=== PATIENT | female | born 1950 | race Caucasian/White ===

== ENCOUNTER → 2016-08-23 | Outpatient (CLI) | payer OTHER ==
[2016-08-23 15:33] LABS: ALT/SGPT 24 U/L (12-78); AST/SGOT 12 U/L (15-37); BLOOD UREA NITROGEN 15 mg/dl (7-18); BUN/CREATININE RATIO 17.3 (10-20); CALCIUM 9.6 mg/dl (8.5-10.1); CARBON DIOXIDE 28 mmol/L (21-32); CHLORIDE 103 mmol/L (98-107); CREATININE 0.88 mg/dl (0.60-1.20); GLUCOSE 125 mg/dl (70-99); POTASSIUM 3.5 mmol/L (3.5-5.1); SODIUM 137 mmol/L (136-145)
[2016-08-23 15:36] LABS: ALB/GLOB RATIO 0.9 (0.9-2); ALKALINE PHOSPHATASE 91 U/L (45-117); CHOLESTEROL 229 mg/dl (0-200); CHOLESTEROL/HDL RATIO 5.1; HDL CHOLESTEROL 45 mg/dl; TRIGLYCERIDES 332 mg/dl (0-150); VERY LOW DENSITY LIPOPROT CALC 66 mg/dl
[2016-08-24 06:29] LABS: ESTIMATED AVERAGE GLUCOSE 134 mg/dl; HA1C FLAG Normal (Normal)
== END | disposition home or self-care (01) ==
LOC: C.LABSPEC 13:00
PROVIDERS: ATTEND Internal Medicine
DX: I10 Essential (primary) hypertension (principal); E78.5 Hyperlipidemia, unspecified; R73.9 Hyperglycemia, unspecified; Z11.59 Encounter for screening for other viral diseases

== ENCOUNTER → 2017-02-23 | Outpatient (CLI) | payer OTHER ==
[2017-02-23 15:37] LABS: BASO % 0.1 %; BASO ABS # 0.01 K/uL (0-0.2); COMPLETE YES; EOS % 2.4 %; HEMATOCRIT 42.4 % (37-47); IG% 0.2 %; LYMPH % 24.6 %; MEAN CELL VOLUME 88.5 fL (80-100); MEAN CORPUSCULAR HEMOGLOBIN 30.1 pg (25-34); MEAN PLATELET VOLUME 11.1 fL (7.4-10.4); NEUT % 67.7 %; PLATELET COUNT 261 K/uL (130-400); RED BLOOD COUNT 4.79 M/uL (4.2-5.4); WHITE BLOOD COUNT 8.93 K/uL (4.8-10.8)
[2017-02-23 15:53] LABS: ALB/GLOB RATIO 0.9 (0.9-2); ALKALINE PHOSPHATASE 91 U/L (45-117); ALT/SGPT 19 U/L (12-78); AST/SGOT 14 U/L (15-37); BLOOD UREA NITROGEN 17 mg/dl (7-18); BUN/CREATININE RATIO 19.8 (10-20); CALCIUM 9.1 mg/dl (8.5-10.1); CARBON DIOXIDE 24 mmol/L (21-32); CHLORIDE 103 mmol/L (98-107); CHOLESTEROL 236 mg/dl (0-200); CREATININE 0.83 mg/dl (0.60-1.20); GLUCOSE 121 mg/dl (70-99); POTASSIUM 3.6 mmol/L (3.5-5.1); SODIUM 138 mmol/L (136-145)
[2017-02-23 16:04] LABS: CHOLESTEROL/HDL RATIO 5.6; HDL CHOLESTEROL 42 mg/dl; TRIGLYCERIDES 307 mg/dl (0-150); VERY LOW DENSITY LIPOPROT CALC 61 mg/dl
[2017-02-24 06:21] LABS: ESTIMATED AVERAGE GLUCOSE 131 mg/dl; HA1C FLAG Normal (Normal)
== END | disposition home or self-care (01) ==
LOC: C.LABSPEC 14:48
PROVIDERS: ATTEND Internal Medicine
DX: I10 Essential (primary) hypertension (principal); E78.5 Hyperlipidemia, unspecified; R73.9 Hyperglycemia, unspecified; E55.9 Vitamin D deficiency, unspecified

== ENCOUNTER → 2017-05-24 | Outpatient (CLI) | payer OTHER ==
--- NOTE | 2017-05-24 15:38 | MAMMOGRAPHY REPORT ---
BILATERAL DIGITAL SCREENING MAMMOGRAM TOMOSYNTHESIS WITH CAD: 05/24/2017 CLINICAL HISTORY: Routine screening. Patient has no complaints. TECHNIQUE: Breast tomosynthesis in addition to standard 2D mammography was performed. Current study was also evaluated with a Computer Aided Detection (CAD) system. COMPARISON: Comparison is made to exams dated: 03/03/2016 mammogram, 11/17/2014 mammogram, 09/12/2012 m ammogram, 08/24/2010 mammogram - [facility], 12/22/2008, and 08/28/2007. BREAST COMPOSITION: The tissue of both breasts is heterogeneously dense, which may obscure small mas ses. FINDINGS: There are grouped calcifications within the right superior breast at approximately 11:30 t o 12:00, for which spot magnification views are recommended for further evaluation. Additionally, th ere is questionable architectural distortion within the right superior breast, which may represent no rmal fibroglandular tissue although spot compression tomosynthesis views and possible breast ultrasou nd are recommended. The technologist also noted right clear nipple discharge during the exam. The remainder of both breasts are stable compared to prior exams, without suspicious masses, calcific ations, or areas of architectural distortion noted. Bilateral nodularity is stable to prior exams. IMPRESSION: ACR BI-RADS CATEGORY 0: INCOMPLETE EVALUATION: NEED ADDITIONAL IMAGING EVALUATION 1. Right breast calcifications and questionable right breast architectural distortion, for which yoselin tional imaging evaluation is recommended. 2. The technologist reported that the patient had right clear nipple discharge during the exam. At the time of the diagnostic workup, recommend ultrasound of the right subareolar breast. The patient will be called to schedule an appointment. Approximately 10% of breast cancers are not detected with mammography. A negative mammographic report should not delay biopsy if a clinically suggestive mass is present. Tesha Hermosillo M.D. /:05/24/2017 13:45:44 Billing Control Clerk: Alise MOREIRA)(Garrett), [facility] letter sent: Addl Imaging 0 BI-RADS Code: ACR BI-RADS Category 0: Incomplete Evaluation: Need Additional Imaging Evaluation
== END | disposition home or self-care (01) ==
LOC: C.MAMM 11:17
PROVIDERS: ATTEND Internal Medicine
DX: Z12.31 Encounter for screening mammogram for malignant neoplasm of breast (principal); R92.1 Mammographic calcification found on diagnostic imaging of breast; N64.52 Nipple discharge

== ENCOUNTER → 2017-06-02 | Outpatient (CLI) | payer OTHER ==
--- NOTE | 2017-06-05 07:41 | MAMMOGRAPHY REPORT ---
UNILATERAL RIGHT DIGITAL DIAGNOSTIC MAMMOGRAM TOMOSYNTHESIS AND TARGETED RIGHT ULTRASOUND: 06/02/2017 CLINICAL HISTORY: Callback from screening mammogram for right breast calcifications and possible righ t breast architectural distortion. The patient also had clear right nipple discharge during the mamm ograms. TECHNIQUE: Breast tomosynthesis in addition to standard 2D mammography was performed. Spot magnific ation right cc and ML views and spot compression right CC and MLO tomosynthesis views were obtained. COMPARISON: Comparison is made to exams dated: 05/24/2017 mammogram, 03/03/2016 mammogram, 11/17/2014 m ammogram, 09/12/2012 mammogram, 08/24/2010 mammogram - [facility], and 12/22/2008. BREAST COMPOSITION: The tissue of the right breast is heterogeneously dense, which may obscure small masses. FINDINGS: Spot magnification views of the right breast demonstrate new grouped coarse heterogeneous calcifications in the right breast at approximately 11:00, with total extent of the calcifications me asuring 14 mm. The previously described possible architectural distortion in the right upper outer q uadrant does not clearly persist on the additional images and likely represents the patient's normal parenchymal pattern, given that the parenchyma appears stable on 2-D views compared to all of availab le prior mammograms including the 2008 exam. Targeted ultrasound was performed of the right upper outer quadrant and subareolar breast. In the ri ght 11:00 periareolar breast, there is an intraductal hypoechoic solid appearing mass which measures 1.8 x 0.6 x 1.0 cm. Echogenic foci are seen within the mass, consistent with the calcifications seen mammographically. More towards the nipple, in the right breast at 11:00 subareolar region, another possible intraductal hypoechoic 7 x 4 x 5 mm mass is also seen. The masses and calcifications are in determinate and ultrasound-guided biopsy is recommended for further evaluation. These may represent papillary lesions and could account for the clear nipple discharge. The remainder of the right upper outer quadrant demonstrates no suspicious masses or other suspicious sonographic abnormalities, alth ough the background parenchymal echotexture is heterogeneous which reduces the sensitivity of the exa m. IMPRESSION: ACR BI-RADS CATEGORY 4: SUSPICIOUS, TARGETED ULTRASOUND ACR BI-RADS CATEGORY 4: SUSPICIO US 1. Hypoechoic intraductal 1.8 cm mass with associated calcifications in the right 11:00 periareolar b reast. The mass likely represents a papillary lesion and could account for the patient's clear nippl e discharge. Recommend ultrasound-guided core needle biopsy for further evaluation. 2. An additional possible intraductal 7 mm mass is seen within the right 11:00 subareolar breast. R ecommend ultrasound-guided core needle biopsy for further evaluation. 3. No clear architectural distortion seen within the right breast on the additional views. Findings are felt to represent the patient's normal parenchymal pattern. However, if the breast biopsies yie ld malignancy, then further evaluation with bilateral breast MRI is recommended. A phone call was made to the physician's office to confirm faxed results were received. The patient has been verbally notified of the results. She tentatively scheduled the biopsies before leaving the department. Approximately 10% of breast cancers are not detected with mammography. A negative mammographic report should not delay biopsy if a clinically suggestive mass is present. Tesha Hermosillo M.D. ah/:06/02/2017 12:11:37 Jigger Operator: Carmen CLEMENS(Tr)(Garrett), [facility] letter sent: Abnormal 4/5 BI-RADS Code: ACR BI-RADS Category 4: Suspicious Ultrasound BI-RADS: ACR BI-RADS Category 4: Suspici ous
== END | disposition home or self-care (01) ==
LOC: C.MAMM 11:02
PROVIDERS: ATTEND Internal Medicine
DX: N63.10 Unspecified lump in the right breast, unspecified quadrant (principal); R92.1 Mammographic calcification found on diagnostic imaging of breast

== ENCOUNTER → 2017-06-14 | Outpatient (CLI) | payer OTHER ==
--- NOTE | 2017-06-14 10:39 | Discharge Instructions ---
Discharge Instructions Procedure Procedure Date: Jun 14, 2017. Reason for visit: Right Breast Masses X2. Discharge Discharge Date: Jun 14, 2017. Discharge Diagnosis: status post breast biopsy Instructions Activity Recommendations: Additional Limitations (see below) Return to School/Work: no limitations Recommended Home Diet: No Limitations Provider Instructions: ACTIVITY RECOMMENDATIONS: * No lifting, pushing, pulling or exercising the affected side for three days. RETURN TO SCHOOL/WORK: * You may return to work/school after the procedure, but do not perform any strenuous activities for 24 to 48 hours. MEDICATIONS: * Tylenol (two 325 mg) every four to six hours if needed for mild pain (if not allergic to Tylenol). DIET: * Resume previous diet. SPECIAL CARE INSTRUCTIONS: * Keep biopsy site dry for 24 hours. May shower after 24 hours, but do not soak (bathe) incision. * May remove Tegaderm (plastic patch) tomorrow AFTER showering. * Leave the steri-strips on for one week. Allow the steri-strips to fall off by themselves. If not off after one week, you may remove them. You may place a Bandaid crosswise over the strips, if desired. * Apply ice 10 minutes on and 10 minutes off as needed. * Wear a bra at bedtime to sleep more comfortably for 2-3 days. * Your referring physician should have the results after approximately 5 to 7 business days. * Call for unusual bleeding, fever, drainage, etc or if you have any questions call during normal business hours or after hours call Dr Hermosillo, . FOLLOW UP VISIT: Follow-up with Referring Physician as scheduled. Allergies Coded Allergies: Penicillins (Verified Allergy, Intermediate, HIVES, 01/10/13) Hina Townsendy Recommendations: Call your doctor if: * Temperature above 101 degrees * Pain not relieved by pain medicine ordered * There is increased drainage or redness from any incision * You have any unanswered questions or concerns. Your Doctors Instructions noted above were prepared by provider Tesha Hermosillo. Patient Signature Section: Patient Instructions Signature Page Tara Eirc Patient (or Guardian) Signature/Date: I have read and understand the instructions given to me by my caregivers. Caregiver/RN/Doctor Signature/Date: The above-named patient and/or guardian has received patient instructions on this date. + Original Patient Signature Page (only) stays with chart. Please make copy for patient.
--- NOTE | 2017-06-14 15:21 | MAMMOGRAPHY REPORT ---
MULTIPLE ULTRASOUND GUIDED BIOPSIES RIGHT BREAST: 06/14/2017 CLINICAL HISTORY: Two masses in the right 11:00 breast. PATIENT CONSENT: The procedure, risks and benefits were discussed with the patient and informed writt en consent was obtained. A timeout was performed immediately prior to the procedure. PROCEDURE DESCRIPTION: With ultrasound guidance, aseptic technique, and lidocaine as the local anesth etic (1% lidocaine to anesthetize the skin and 1% lidocaine with epinephrine to anesthetize the deepe r tissues), the mass of concern in the right 11:00 periareolar breast (labeled mass "A") was sampled 4 times with a 14-gauge Achieve biopsy needle. Immediately thereafter, with ultrasound guidance, asep tic technique, and lidocaine as the local anesthetic, a metallic localizer clip (ribbon-shaped) was p laced at the biopsy site. A specimen radiograph was performed, which shows calcifications to be pres ent within the samples. Through the same skin arpan, using ultrasound guidance and lidocaine as the local anesthetic, the mass of concern in the right 11:00 subareolar breast (labeled mass "B") was sampled 3 times with a 14-gau ge achieve biopsy needle. Immediately thereafter, with ultrasound guidance, aseptic technique, and l idocaine as the local anesthetic, a metallic localizer clip (wing-shaped) was placed at the biopsy si te. Direct pressure was applied to the site immediately post procedure and hemostasis was achieved. Postprocedure unilateral mammograms were performed to confirm clip placement. The patient tolerated t he procedure without complication. She was given wound care instructions. The specimens were sent to pathology for analysis. COMPARISON: Comparison is made to exams dated: 06/02/2017 ultrasound, 06/02/2017 mammogram, 05/24/2017 ma mmogram, 03/03/2016 mammogram, 11/17/2014 mammogram, and 09/12/2012 mammogram - [facility]. IMPRESSION: ULTRASOUND GUIDED BIOPSY 1. Ultrasound-guided core needle biopsy of the right 11:00 periareolar breast mass with associated ca lcifications (mass "A"), with clip placement. A specimen radiograph shows calcifications to be prese nt within the samples. 2. Ultrasound guided core needle biopsy of the right 11:00 subareolar breast mass (mass "B"), with c lip placement. The patient will receive pathology results from her referring provider. Tesha Hermosillo M.D. ah/:06/14/2017 10:46:05 Furniture Mover: Jasmina MOREIRA)(M), [facility]
--- NOTE | 2017-06-14 15:25 | MAMMOGRAPHY REPORT ---
UNILATERAL RIGHT DIGITAL DIAGNOSTIC MAMMOGRAM TOMOSYNTHESIS: 06/14/2017 CLINICAL HISTORY: Status post right breast biopsy X2. TECHNIQUE: Breast tomosynthesis in addition to standard 2D mammography was performed. COMPARISON: Comparison is made to exams dated: 06/14/2017 ultrasound biopsy, 06/02/2017 ultrasound, 06/02 mammogram, 05/24/2017 mammogram, 03/03/2016 mammogram, and 11/17/2014 mammogram - [facility]. BREAST COMPOSITION: The tissue of the right breast is heterogeneously dense, which may obscure small masses. FINDINGS: A new ribbon-shaped biopsy marker clip is seen at the site of the biopsied mass with assoc iated calcifications in the right 11:00 periareolar breast (mass A). A new wing-shaped biopsy marker clip is seen more anteriorly at the site of the biopsied mass in the right 11:00 subareolar breast ( mass B). No significant postbiopsy hematoma is seen. IMPRESSION: POST PROCEDURE IMAGING FOR MARKER PLACEMENT New biopsy marker clips status post right breast biopsies 2. Pathology results are pending. Approximately 10% of breast cancers are not detected with mammography. A negative mammographic report should not delay biopsy if a clinically suggestive mass is present. Tesha Hermosillo M.D. ah/:06/14/2017 10:58:02 [place] Technician: Jasmina CLEMENS(Tr)(M), [facility] BI-RADS Code: Post Procedure Imaging For Marker Placement
== END | disposition home or self-care (01) ==
LOC: C.MAMM 09:51
PROVIDERS: ATTEND Internal Medicine
DX: N63.10 Unspecified lump in the right breast, unspecified quadrant (principal); D24.1 Benign neoplasm of right breast

== ENCOUNTER → 2017-07-18 | Outpatient (CLI) | payer OTHER ==
[~2017-07-18] MED LIST: ATEN50TA PO; CHOL1TAB42 PO; HYDR25TA5 PO; LISI10TA PO; ROSU20TA PO
[2017-07-18 18:05] LABS: BASO % 0.2 %; BASO ABS # 0.02 K/uL (0-0.2); EOS % 2.1 %; EOS ABS # 0.21 K/uL (0-0.5); HEMOGLOBIN 14.8 g/dL (12.0-16.0); IG# 0.03 K/uL (0.00-0.02); LYMPH ABS # 2.32 K/uL (1.2-3.4); MEAN CELL VOLUME 88.8 fL (80-100); MEAN CORPUSCULAR HEMOGLOBIN 30.6 pg (25-34); MEAN CORPUSCULAR HGB CONC 34.4 g/dl (32-36); MEAN PLATELET VOLUME 11.7 fL (7.4-10.4); MONO % 4.9 %; MONO ABS # 0.49 K/uL (0.11-0.59); NEUT % 69.5 %; PLATELET COUNT 238 K/uL (130-400); RED CELL DISTRIBUTION WIDTH CV 13.6 % (11.5-14.5); RED CELL DISTRIBUTION WIDTH SD 44.6 fL (36.4-46.3); WHITE BLOOD COUNT 10.07 K/uL (4.8-10.8)
[2017-07-18 18:20] LABS: BLOOD UREA NITROGEN 20 mg/dl (7-18); CALCIUM 9.5 mg/dl (8.5-10.1); CARBON DIOXIDE 27 mmol/L (21-32); GLUCOSE 135 mg/dl (70-99); POTASSIUM 3.6 mmol/L (3.5-5.1); SODIUM 138 mmol/L (136-145)
== END | disposition home or self-care (01) ==
LOC: C.LABSPEC 17:03
PROVIDERS: ATTEND Internal Medicine
DX: D24.9 Benign neoplasm of unspecified breast (principal); Z01.812 Encounter for preprocedural laboratory examination

== ENCOUNTER → 2017-08-18 | Day surgery (SDC) | payer OTHER ==
[2017-08-11 15:05] VITALS: Ht 165.1 cm; Wt 67.7 kg
[~2017-08-18] VITALS: Ht 165.1 cm; Wt 67.7 kg
[~2017-08-18] MED LIST changes: +ATROPINE SULFATE 0.1 MG/ML 5ML SYR IV PRN; +BUPIVACAINE/EPINEPHRINE 0.5% MPF 1:200,000 30 ML VIAL ONE; +CIPROFLOXACIN / D5W 400 MG IV SCH; +EpHEDrine SULFATE INJ 50 MG/ML AMP IV PRN; +EpHEDrine SULFATE INJ 50 MG/ML AMP ONE; +FENTANYL CITRATE INJ 50 MCG/1 ML 2 ML VIAL IV PRN; +FENTANYL CITRATE INJ 50 MCG/1 ML 2 ML VIAL ONE; +HYDROCODONE/ACETAMIN 5/325MG TAB PO PRN; +IBUPROFEN 600 MG TAB PO PRN; +KETOROLAC TROMETHAMINE 30 MG/ML VIAL IV. PRN; +LACTATED RINGER'S 1000ML 1,000 ML IV SCH; +LIDOCAINE HCL 2% 2 ML VIAL (20MG/ML) ONE; +MIDAZOLAM HCL 1 MG/ML 2ML VIAL ONE; +ONDANSETRON INJ 2 MG/ML 2 ML VIAL IV PRN; +PROMETHAZINE HCL INJ 6.25 MG in SODIUM CHLORIDE 0.9% 50ML 50 ML IV PRN; +PROPOFOL IV EMULSION 10 MG/ML 20 ML VIAL IV ONE; +SODIUM CHLORIDE 0.9% 1000ML 1,000 ML IV SCH; +SODIUM CHLORIDE 0.9% INJ 10 ML VIAL ONE
--- NOTE | 2017-08-18 06:52 | History & Physical Bridge Note ---
H&P Re-Evaluation Bridge Note: I have examined the patient, reviewed the History & Physical and in the interval since the performance of the History & Physical I have noted the following changes of clinical significance: No changes noted
--- NOTE | 2017-08-18 07:04 | Discharge Instructions-SurgCtr ---
Discharge Instructions Date of Service Aug 18, 2017. Visit Reason for Visit: Radial Scar Of Breast, Papilloma Of Breast Discharge Discharge Diagnosis / Problem: papilloma and radial scar of breast Discharge Goals Goal(s): Therapeutic intervention, Prevent Disease Progression Activity Recommendations Activity Limitations: as noted below Lifting Limitations: gradually increase as tolerated Exercise/Sports Limitations: until after follow-up appointment Shower/Bathe: tomorrow Anesthesia . Post Anesthesia Instructions: If you have had General Anesthesia or IV Sedation: * Do not drive today. * Resume driving when surgeon permits. * Do not make important decisions or sign legal documents today. * Call surgeon for: 1. Temperature elevations greater than 101 degrees F. 2. Uncontrollable pain. 3. Excessive bleeding. 4. Persistent nausea and vomiting. 5. Medication intolerance (nausea, vomiting or rash). * For nausea and vomiting use only clear liquids such as: tea, soda, bouillon until nausea subsides, then gradually increase diet as tolerated. * If you have any concerns or questions, call your surgeon's office. If physician is unavailable and it is an emergency, call 911 or go to the nearest emergency room. . Instructions / Follow-Up Instructions / Follow-Up follow up with Dr. Kimball 1-2 weeks. may use tylenol or ibuprofen as needed for pain/discomfort Diet Recommendations Home Diet: resume previous diet Pending Studies Studies pending at discharge: yes List of pending studies: pathology report Medical Emergencies . Who to Call and When: Medical Emergencies: If at any time you feel your situation is an emergency, please call 911 immediately. . Non-Emergent Contact Non-Emergency issues call your: Primary Care Provider, Surgeon Call Non-Emergent contact if: temperature is above 101, wound has increased drainage, wound has increased redness, wound has increased pain . . "Provider Documentation" section prepared by Roland Kimball. .
--- NOTE | 2017-08-18 07:45 | [facility] Post Operative Brief Note ---
Immediate Operative Summary Operative Date Aug 18, 2017. Pre-Operative Diagnosis Radial Scar of Right Breast, Papilloma of Right Breast Post-Operative Diagnosis same Procedure(s) Performed Right Breast Lump Re-Excision Surgeon Dr. Kolby Kimball Telegraph Editor Surgeon(s) 0 Estimated Blood Loss 5cc Findings Consistent with Post-Op Diagnosis Specimens A. Additional Csyrnl-Okqapuoz-Cbfpq Breast-out of pt and in formalin at 0720 B. Additional Rvcjru-Wnskwum-Kwwbz Breast-out of pt and in formalin at 0725 Anesthesia Type General Complication(s) none
--- NOTE | 2017-08-18 07:58 | [facility] Operative Report ---
Operative Report Operative Date Aug 18, 2017. Pre-Operative Diagnosis Radial Scar of Right Breast, Papilloma of Right Breast Post-Operative Diagnosis same Procedure(s) Performed Right Breast Lump Re-Excision Surgeon Dr. Kolby Kimball Analyst Geochemical Prospecting Surgeon(s) 0 Estimated Blood Loss 5cc Specimens A. Additional Spyvoq-Seerpxwc-Menns Breast-out of pt and in formalin at 0720 B. Additional Owoybk-Gaybhaw-Gykbx Breast-out of pt and in formalin at 0725 Anesthesia Type General Complication(s) none Description of Procedure After informed consent was obtained the patient was brought to the operating room and placed in the supine position with the right arm extended. After successful placement of the laryngeal mask airway the right breast and chest wall were sterilely prepped and draped in usual fashion. I used a 15 blade scalpel to make an elliptical incision around her previous scar. This was then carried down through the soft tissue using electrocautery. I made skin flaps using electrocautery and began by removing the anterior margin of the area of previous biopsy. I took a reasonable size of anterior margin and sent this off to pathology to be evaluated separately.. The 2 positive previous margins were anterior and lateral. Next I set about to taking some additional lateral margin. I used retractors traction /countertraction and electrocautery to take additional lateral margin from her previous right lumpectomy. Again I made flaps and used traction and cautery to remove the lump in 1 piece. This encompassed the entire lateral margin of her previous biopsy down to the chest wall. Once I had this out I sent this is additional lateral margin. We thoroughly irrigated the wound. I controlled any small bleeding points using electrocautery. A final irrigation was performed. Joan powder was placed on all the raw surfaces to help prevent seroma and hematoma formation. I then closed the wound in multiple layers using 2-0 Vicryl for the deeper layers 3-0 Vicryl for the mid layers and 4-0 Monocryl for the skin. Marcaine was injected around the incision for postoperative analgesia and and used benzoin and Steri- Strips as well as gauze and tape for dressing. The patient was then awakened extubated and transferred to recovery in stable condition. I attest to the content of the Intraoperative Record and any orders documented therein. Any exceptions are noted below.
[2017-08-18 08:39] VITALS: TEMP 36.2
[2017-08-18 09:03] VITALS: BP 162/82; PULSE 57; O2SAT 99
--- NOTE | 2017-08-18 09:09 | Anesthesia Progress Nt - [facility] ---
Anesthesia Post Op Note Date & Time Aug 18, 2017 at 09:09 Vital Signs Pain Intensity: 5 Vital Signs Past 12 Hours Date Time Temp Pulse Resp B/P (MAP) Pulse Ox O2 Delivery O2 Flow Rate FiO2 08/18/17 09:03 57 16 162/82 (108) 99 Room Air 08/18/17 08:39 36.2 61 16 157/99 (118) 99 Room Air 08/18/17 08:28 36.6 51 12 146/52 97 Room Air 08/18/17 07:50 36.1 58 16 134/54 100 Mask 6 08/18/17 06:24 36.7 51 18 183/70 (107) 98 Room Air Notes Mental Status: alert / awake / arousable, participated in evaluation Pt Amnestic to Procedure: Yes Nausea / Vomiting: adequately controlled Pain: adequately controlled Airway Patency, RR, SpO2: stable & adequate BP & HR: stable & adequate Hydration State: stable & adequate Anesthetic Complications: no major complications apparent
== END | disposition home or self-care (01) ==
LOC: X.SURG 06:15
PROVIDERS: ATTEND Surgery
DX: N60.41 Mammary duct ectasia of right breast (principal); D24.1 Benign neoplasm of right breast; N64.89 Other specified disorders of breast; E78.5 Hyperlipidemia, unspecified; I10 Essential (primary) hypertension; G62.9 Polyneuropathy, unspecified; Z80.0 Family history of malignant neoplasm of digestive organs; Z82.49 Family history of ischemic heart disease and other diseases of the circulatory system; Z83.3 Family history of diabetes mellitus; Z79.899 Other long term (current) drug therapy; Z88.0 Allergy status to penicillin